=== PATIENT | male | born 1990 | race American Indian/Alaskan Native ===

== ENCOUNTER 2019-12-31 11:51 | Emergency (ER) | payer SELFPAY | END 2019-12-31 16:00 | disposition left against medical advice (07) | LOC: ED 11:51 | DX: M79.604 Pain in right leg (principal); Z53.21 Procedure and treatment not carried out due to patient leaving prior to being seen by health care provider ==

== ENCOUNTER 2022-05-17 18:36 | Emergency (ER) | payer SELFPAY ==
[2022-05-17] MEDS ORDERED: HYDROmorphone 1 MG/1 ML INJ ONE (18:49)
[2022-05-17] MEDS ORDERED: SODIUM CHLORIDE 0.9% 1000 ML 1,000 ML ONE (18:50)
[2022-05-17] MEDS ORDERED: HYDROmorphone 1 MG/1 ML INJ IV ONE (19:09)
[2022-05-17] MEDS ORDERED: SODIUM CHLORIDE 0.9% 1000 ML 1,000 ML IV ONE (19:09)
[2022-05-17] MEDS ORDERED: SODIUM CHLORIDE 0.9% 1000 ML 2,000 ML ONE (19:09)
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
[2022-05-17] MEDS ORDERED: diphenhydrAMINE 50 MG/ML VIAL IV ONE (19:42)
[2022-05-17] MEDS ORDERED: HALOPERIDOL DECANOATE 100 MG/1 ML INJ IM ONE (19:42)
[2022-05-17] MEDS ORDERED: LORazepam 2 MG/ML VIAL IV ONE (19:42)
[2022-05-17] MEDS ORDERED: HALOPERIDOL LACTATE 5 MG/1 ML INJ IM ONE (19:54)
[2022-05-18] MEDS ORDERED: SODIUM CHLORIDE 0.9% 1000 ML 1,000 ML IV ONE (06:12)
[2022-05-18 06:45] LABS: Basophils % (Auto) 0.6 % (0.0-1.8); Eosinophils % (Auto) 0.6 % (0.0-4.3); Lymphocytes # (Auto) 1.1 K/mm3 (1.2-5.4); Lymphocytes % (Auto) 13.6 % (13.4-35.0); Mean Corpuscular HGB Conc 33 % (32-34); Mean Corpuscular Volume 100 fl (84-94); Monocytes # (Auto) 1.3 K/mm3 (0.0-0.8); Monocytes % (Auto) 15.3 % (0.0-7.3); Platelet Count 150 K/mm3 (140-440); Red Blood Count 6.48 M/mm3 (3.65-5.03); Red Cell Distribution Width 15.6 % (13.2-15.2)
[2022-05-18 06:48] LABS: Hematocrit 64.7 % (35.5-45.6)
[2022-05-18] MEDS ORDERED: TETANUS,DIPH,PERTUSS(ACELL) VACCINE 0.5 ML SYRINGE IM ONE (06:58)
[2022-05-18] MEDS ORDERED: cefTRIAXone/NS 1 GM/50 ML 1 GM/50 ML BAG IV ONE (06:59)
[2022-05-18 07:12] LABS: BUN/Creatinine Ratio 18; Blood Urea Nitrogen 16 mg/dL (9-20); Calcium 9.2 mg/dL (8.4-10.2); Hemolysis Index 140
[2022-05-18 10:32] VITALS: BP 145/80
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
== END 2022-05-18 11:30 | disposition hospice, inpatient (51) ==
LOC: ED 18:36
DX: T21.31XA Burn of third degree of chest wall, initial encounter (principal); T21.22XA Burn of second degree of abdominal wall, initial encounter; X08.8XXA Exposure to other specified smoke, fire and flames, initial encounter; Y93.89 Activity, other specified; Y92.89 Other specified places as the place of occurrence of the external cause; Y99.8 Other external cause status
CPT/HCPCS: 71045; 80048; 82550; 85025; 90471; 90715; 96361; 96365; 96372; 96375; 99291; J0696; J1170; J1200; J1630; J2060; J7030; 99285